=== PATIENT | male | born 1965 | race Caucasian/White ===

== ENCOUNTER 2016-04-18 10:26 | Emergency (ER) | payer BC ==
--- NOTE | 2016-04-18 12:09 | DIAGNOSTIC IMAGING REPORT ---
PROCEDURE: XR CHEST 1 VIEW INDICATION: CHEST PAIN TECHNIQUE: Portable AP view 11:00 a.m. COMPARISON: None available FINDINGS: Lungs are clear. Heart and mediastinum are normal. Thorax is normal. IMPRESSION: 1. Negative chest.
--- NOTE | 2016-04-18 14:15 | ED CLINICAL REPORT ---
Clinical Report - Physicians/Mid Levels [facility] [address] [place] [address] 04/18/2016 10:29 Patient: EVERARDO MATA Arrived- By private vehicle. Historian- patient. HISTORY OF PRESENT ILLNESS Chief Complaint: CHEST PAIN. It is described as tightness and burning and it is described as located in the left chest area and neck and radiating to the neck (Left). 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 It was abrupt in onset and has been constant but is not gone now. Onset during light activity; at work. At its maximum, severity described as moderate. When seen in the E.D., severity described as moderate. Modifying factors. Not worsened by anything. Not relieved by anything. No nausea, vomiting, difficulty breathing or diaphoresis. (reports having normal stress test and monitoring for abnormal heart beat "years ago." Has not seen a emergency man in the past. NO hemoptysis, leg swelling, trauma, or recent surgeries.). No additional chest pain. Similar symptoms previously: None. Recent medical care: Not recently seen/assessed. REVIEW OF SYSTEMS No fever, chills, cough, pedal edema or calf pain. No sore throat, abdominal pain or skin rash. All systems otherwise negative, except as recorded above. PAST HISTORY See nurses notes. Denies the following risk factors for DVT/PE - history of DVT and pulmonary embolism, recent surgery, recent RI and congestive heart failure. Denies the following risk factors for DVT/PE - cancer, clotting disorder, estrogens, obesity and immobility. Denies the following risk factors for DVT/PE - advanced in age and vena cava filter. SOCIAL HISTORY Never smoker. No alcohol use or drug use. Is a local resident. FAMILY HISTORY History of heart disease (mother with "heart attack" in late 50s). ADDITIONAL NOTES The nursing notes have been reviewed. PHYSICAL EXAM Vital Signs: 04/18/2016 10:27 BP: 146/91. HR: 74. RR: 12. O2 saturation: 97%. Temp: 97.9 F. Pain level now: 1/10. Blood pressure normal. Oxygen saturation normal. Appearance: Alert. Oriented X3. No acute distress. Eyes: Pupils equal, round and reactive to light. Eyes normal inspection. ENT: Ears normal. Nose normal. Pharynx normal. Neck: Normal inspection. Neck supple. No JVD, lymphadenopathy or thyromegaly. CVS: Normal heart rate and rhythm. Heart sounds normal. Pulses normal. No decreased pulses. Respiratory: No respiratory distress. Breath sounds normal. Chest nontender. No rales, rhonchi or wheezes. Abdomen: Soft and nontender. Bowel sounds normal. No mass. Skin: Skin warm and dry. Normal skin color. No rash. Normal skin turgor. Extremities: Extremities exhibit normal ROM. No clubbing present or lower extremity edema. No calf tenderness. No lower extremity edema. Neuro: Oriented X 3. LABS, X-RAYS, AND EKG EKG: No acute process. No acute ischemia. Normal EKG. Rate: 76. Normal P waves. Normal PRISCILA. Normal QRS complex. Normal axis. Normal ST and T waves, QT and QTc. The study has been interpreted contemporaneously. The study has been independently viewed by me. The EKG appears to be a good tracing. Chest X-ray: (PROCEDURE: XR CHEST 1 VIEW INDICATION: CHEST PAIN TECHNIQUE: Portable AP view 11:00 a.m. COMPARISON: None available FINDINGS: Lungs are clear. Heart and mediastinum are normal. Thorax is normal. IMPRESSION: 1. Negative chest.). Views: PA. The X-rays were independently viewed by me and interpreted by the radiologist. The X-rays were discussed with the radiologist (via pacs). Laboratory Tests: CBC w Diff: (TIM: 04/18/2016 10:40) ( MsgRcvd 04/18/2016 11:15) Final results Test Result Flag Units (Reference) WHITE BLOOD COUNT 6.6 K/uL (4.5-11.5) RED BLOOD COUNT 5.16 M/uL (4.50-5.90) HEMOGLOBIN 15.4 gm/dL (13.5-17.5) HEMATOCRIT 45.6 % (41.0-53.0) MEAN CELL VOLUME 88 fL (80-100) MEAN CORPUSCULAR HGB 30 pg (26-34) MEAN CORPUSCULAR HGB CONC 34 g/dL (31-37) RED CELL DISTRIBUTION WIDTH 13.1 % (11.6-14.8) PLATELET COUNT 265 K/uL (150-400) NEUTROPHIL % 56.0 % (50-75) LYMPH % 34.7 % (25-40) MONO % 6.8 % (3-14) EOSINOPHIL % 2.0 % (0-4) BASOPHIL % 0.5 % (0-2) [id number]: (TIM: 04/18/2016 10:40) ( [facility] 04/18/2016 11:19) Final results Test Result Flag Units (Reference) D-DIMER QUANTITATIVE 0.33 ug/mLFEU (0.27-0.52) The primary value of this quantitative assay relates toits negative predictive value (i.e. exclusion) of pulmonaryembolism/deep vein thrombosis/DIC.Elevated levels of d-dimer may also occur with:, age, cancer, inflammation, liver disease,post-op, infection, hematoma, coronary disease, peripheralarteriopathy, bleeding disorders and thrombolytic treatment.Results should be correlated with other clinical andradiological data.Testing Methodology: Latex Immunoassay Troponin-I: (TIM: 04/18/2016 12:55) ( [facility] 04/18/2016 13:27) Final results Test Result Flag Units (Reference) TROPONIN I <0.05 ng/mL (0.00-1.5) TROPONIN REFERENCE RANGE:<0.1 NEGATIVE0.1-1.5 INDETERMINANT>1.5 POSITIVE CMP: (TIM: 04/18/2016 10:40) ( [facility] 04/18/2016 11:33) Final results Test Result Flag Units (Reference) GLUCOSE 138 H mg/dL (70-110) BUN 20 H mg/dL (7-18) CREATININE 1.0 mg/dL (0.6-1.3) Estimated GFR >60 mL/min Estimated GFR- >60 mL/min Note: Persistent reduction over 3 months in eGFR<60 mL/min/1.73 m2 defines CKD. Patients with eGFR values>=60 mL/min/1.73 m2 may also have CKD if evidence ofpersistent proteinuria. Additional information may be foundat [email or web address].org. SODIUM 141 mmol/L (136-145) POTASSIUM 3.9 mmol/L (3.5-5.1) CHLORIDE 104 mmol/L (98-107) CARBON DIOXIDE 29 mmol/L (21-32) CALCIUM 8.4 L mg/dL (8.5-10.1) TOTAL PROTEIN 7.1 g/dL (6.4-8.2) ALBUMIN 3.6 g/dL (3.3-5.0) BILIRUBIN, TOTAL 0.8 mg/dL (0.0-1.0) ALKALINE PHOSPHATASE 59 U/L (46-116) AST (SGOT) 20 U/L (15-37) ALT (SGPT) 35 U/L (12-78) TROPONIN I <0.05 L ng/mL (0.00-1.5) TROPONIN REFERENCE RANGE:<0.1 NEGATIVE0.1-1.5 INDETERMINANT>1.5 POSITIVE . PROGRESS AND PROCEDURES Course of Care: the patient is a pleasant 50-year-old male with no pertinent past medical history presenting for evaluation of chest pain. At this time differential diagnosis includes pneumothorax, acute myocardial infarction, and pulmonary embolism. Patient will be reevaluated with d-dimer as well as chest x-ray, EKG, and laboratory studies. A delta troponin will be ordered because of the time of onset of patient's symptoms. The patient did mention having history of heartburn. Patient reports that it is in a slightly different area than previous episodes of heartburn. We'll provide patient with GI cocktail and reevaluate. Patient is agreeable to the treatment and plan. symptoms with mild improvement after GI cocktail provided here in the emergency department. First troponin is noted to be undetectable on laboratory studies. Electorally lites and complete blood count cell count not show any acute abnormalities EKG is also unremarkable. No infiltrates or consolidations noted on patient's chest x-ray. Because the patient's time course, delta troponin has been ordered. I discussed with patient the course and the results of his laboratory studies so far. Patient is not accompanied with family. The patient's mother and father at bedside. Explained to the patient and family at length the workup and capabilities here in the emergency department. Patient's mother is very concerned as she states she had a heart attack in her 50s. Mother also states that she had a heart attack recently. Had a long discussion in regards to workup here in the emergency department and possibilities for plan. Explained to family the different risks that are associated with patient's who comes to the emergency department with chest pain. The patient is otherwise a young healthy 50-year-old male with Risk factor of family history. Explained to them possibility of cardiology evaluation and possibilities of cardiology's decision once he is able to schedule an appointment with them Provided his laboratory studies are unremarkable today. The patient's workup was noted to be unremarkable. The patient's second troponin was also less than the dissectible amount area because of the troponin has been negative 2 as well as with a normal d-dimer. Do not feel patient has an acute myocardial infarction, thoracic aortic dissection, or pulmonary embolism. Pain is improved here in the emergency department. Do not the patient is admitted to the hospital or require further emergency department evaluation/workup. Patient is a stable and reliable outpatient candidate for follow-up with cardiology. I was able to contact the cardiology office. We had faxed over information for them to schedule an appointment with the patient. They had requested that we call back in approximately 2 hours for confirmation of the appointment. Discussed with patient workup, diagnosis, home care, follow-up, and return precautions. All questions answered. The patient expressed understanding of these instructions and was agreeable to them. We had called back approximately 2 hours later. Apparently nothing had happened. They state that they will speak with cardiology in regards to the patient's appointment and contact the patient when one has been scheduled. Unfortunately, the schedule has been full and they do not have any current openings at this time within 3 days. I have been able to contact the emergency man office on April 20, 2016. Patient hasn't scheduled an appointment for April 22, 2016 at 2:30 PM. Had left a message on the patient's phone in regards to the appointment. Of note, I am acquainted with the patient's brother. Informed verbal consent obtained for sharing medical information with the brother. I was able to contact the brother and up-to-date him on the appointment that is been scheduled for April 22. Encouraged the family or the patient and including the brother to contact me on my cell phone if they have any questions. Disposition: Discharged. Condition: good. CLINICAL IMPRESSION Chest pain characterized as "tightness" .12 lead EKG performed. (acute left-sided). 04/18/2016 10:27 BP: 146/91. HR: 74. RR: 12. O2 saturation: 97%. Temp: 97.9 F. Pain level now: 03/29. Hypertensive. Oxygen saturation normal. Essential hypertension. INSTRUCTIONS Warnings: GENERAL WARNINGS: Return or contact your physician immediately if your condition worsens or changes unexpectedly, if not improving as expected, or if other problems arise. SPECIFICALLY, return if you develop chest, neck, jaw, shoulder, arm, or back pain, difficulty breathing, a fluttering sensation in your chest, lightheadedness, fainting, excessive fatigue, or sudden sweating. Your Current Medications: CONTINUE TAKING THE FOLLOWING MEDICATIONS: None*. Prescription Medications: Pepcid 20 mg: take 1 orally every 12 hours as needed for indigestion, upset stomach or heartburn. Dispense thirty (30). No refills. Substitution is permissible. OTC Medications: Aspirin 81 mg (available over the counter): take 1 orally every 24 hours. Dispense thirty (30). No refills. Follow-up: Return to the emergency department as needed. Screening today revealed the patient's blood pressure to be in the hypertensive range. The patient should follow up with a primary care provider for blood pressure management. Understanding of the discharge instructions verbalized by patient and family. Follow-up with: [facility], , , [address], [facility], [id number] Follow up in three days. Reason for referral: recheck today's concerns. Summary of care provided to patient and family via paper. Follow-up with: Fuad Villegas MD, Cardiology, , [facility], [address] [facility], [id number] Follow up in three. Reason for referral: recheck today's concerns. please call to verify appointment. (Electronically signed by Curtis Ruggiero Dr. 04/20/2016 16:28)
--- NOTE | 2016-04-18 14:15 | ED NURSING NOTES ---
Clinical Report - Nurses [facility] [address] [place] [address] 04/18/2016 10:29 Patient: EVERARDO MATA TRIAGE Acuity: LEVEL 2. Chief Complaint: CHEST PAIN. Alert. No acute distress. SEPSIS SCREEN: Sepsis Screen. Negative (no infection suspected/documented). --10:32 Denia Prater R.N. 10:27 04/18/16. BP: 146/91. HR: 74. RR: 12. O2 saturation: 97%. Temp: 97.9 F. Pain level now: 03/29. --10:32 Denia Prater R.N. Weight: 88.4 kg stated. Height/Length: 75 inches Per Patient. BMI: 24.4. --10:30 Denia Prater R.N. Medications None. --10:28 Denia Prater R.N. Medication/allergy information source: the patient. --10:32 Denia Prater R.N. Allergies No Known Drug Allergy. --10:28 Denia Prater R.N. History Arrived by private vehicle. Historian: patient. Accompanied by (coworker). Primary physician (Marleny). This started just prior to arrival. Describes the quality as burning. Relates location as in the left chest area. ( Pt reports gradual onset of chest pain after eating lunch.). No nausea, vomiting, nausea or vomiting. SOCIAL HX: Never smoker. Occasional alcohol use. No drug use. FALL RISK ASSESSMENT: Fall risk assessment completed. No fall risk identified. NUTRITIONAL RISK ASSESSMENT: The nutritional risk assessment revealed no deficiencies. FUNCTIONAL ASSESSMENT: Functional assessment: no impairments noted. LEARNING NEEDS ASSESSMENT: The learning needs assessment revealed no barriers. SKIN INTEGRITY ASSESSMENT: Skin integrity risk assessment completed. No skin integrity risk identified. --10:32 Denia Prater R.N. Assessment GENERAL / NEURO / PSYCH: Alert. Oriented X 4. Appears in no acute distress. Patient appears calm and cooperative. RESPIRATORY: Respirations not labored. CVS: Cardiac rhythm: normal sinus rhythm. Capillary refill less than 2 seconds. GI / : Abdomen soft and nontender. SKIN: Mucous membranes are pink. Skin is warm and dry. --10:32 Denia Prater R.N. Interventions ID band on patient. To treatment room. --10:32 Denia Prater R.N. PHYSICAL ASSESSMENT 10:33 04/18/16. Ambulatory to room. GENERAL / NEURO / PSYCH: Alert. Oriented X 4. Appears in no acute distress. HEENT: Mucous membranes are pink. RESPIRATORY: Respirations not labored. Breath sounds within normal limits. CVS: Normal sinus rhythm noted. Heart sounds within normal limits. GI / : Abdomen soft. EXTREMITIES: No lower extremity edema. SKIN: Skin is warm and dry. Normal skin turgor. Skin is non-tender. --10:33 Denia Prater R.N. NURSING PROGRESS NOTES 10:33 04/18/16. ekg monitor, pulse oximeter and NIBP monitor placed on patient; monitor alarms on. Patient gowned. Two patient identifiers checked. Call light placed in reach. Side rails up. Bed placed in lowest position. Brakes of bed on. Patient ready for evaluation- chart flagged and ED physician notified. --10:33 Denia Prater R.N. EKG time: (1034). EKG was performed by a tech and shown to the ED physician. --10:33 Denia Prater R.N. 10:44 04/18/2016 Site #1 started via IV in the left antecubital space with an 20g angiocath, with aseptic technique and good blood return; one attempt. Blood drawn: rainbow set. Labeled in the presence of the patient and sent to the lab. Saline lock flushed with 10 mL saline. --10:44 Denia Prater R.N. 10:58 04/18/2016 GI COCKTAIL WHITE (Simethicone) PO 30 mL given. Allergies verified and confirmed 5 rights. --10:58 Denia Prater R.N. Checked patient name and birthdate: patient confirmed. Blood samples drawn from the right antecubital space with syringe and 23g butterfly by tech per protocol ; labeled in presence of the patient: green top; cardiac enzymes (2nd set). --12:57 Jonathan Rankin 13:04 04/18/16. BP: 141/89. HR: 76. RR: 18. O2 saturation: 99%. --13:04 Denia Prater R.N. Care transferred and report received. --13:14 Rosie Mccall 13:14 04/18/16. BP: 141/91. HR: 78. RR: 18. O2 saturation: 98% on room air. Pain level now: 03/29. --13:14 Rosie Mccall. DISPOSITION / DISCHARGE 14:34 04/18/16. Condition at departure: improved. The goals identified in the patient's plan of care were met. FALL RISK ASSESSMENT: Fall risk assessment completed. No fall risk identified. --14:34 Rosie Mccall 14:34 04/18/16. BP: 137/86. HR: 80. RR: 16. O2 saturation: 97% on room air. Temp: 99 F. Pain level now: 03/29. --14:34 Rosie Mccall 14:55 04/18/16. Departure time: 14:55 Apr 18 2016. No learning barriers present. Discharge instructions provided and reviewed with the patient. Reviewed warnings (Patient verbalized awareness of warning s/sx listed in dc paperwork.). Reviewed medication(s) side effects, precautions, dosing and course information. Prescription(s) given to the patient (Aspirin, Pepcid). Treatments reviewed. Reviewed referrals for followup ([facility]-Patient insurance information sent to clinic. Clinic to call back around 4. Patient informed that ER staff will contact patient.). Patient verbalized understanding. Written instructions provided in Slovak. The patient was discharged by the physician. He was discharged home and accompanied by family. He left the Emergency Department ambulatory and via private vehicle. Family member driving. --14:55 Rosie Mccall. Locked/Released at 04/20/2016 7:55 by Christiane Omalley R.N.
--- NOTE | 2016-04-18 14:15 | ED ORDER SUMMARY ---
..... Patient: EVERARDO MATA OrderSheet [facility] VisitID: [id number] [place] [address] 50y, M Registration Date/Time: 04/18/2016 ORDER SHEET Weight: 88.4 kg (stated) Allergies: No Known Drug Allergy GENERAL ORDERS: Chest 1V Urgent (10:48 04/18/2016 Jaye Lea) (Ack 10:54 LMuller) (12:49 MWinterer R.N.) Water Control Supervisor (Continuous) (CP) (10:48 04/18/2016 Jaye Lea) (10:58 MWinterer R.N.) CBC w Diff Urgent (10:49 04/18/2016 Jaye Lea) (Ack 10:54 LMuller) (10:58 MWinterer R.N.) CMP Urgent (10:49 04/18/2016 Jaye Lea) (Ack 10:54 LMuller) (10:58 MWinterer R.N.) D-Dimer Urgent (10:49 04/18/2016 Jaye Lea) (Ack 10:54 LMuller) (10:58 MWinterer R.N.) Troponin-I Urgent (10:49 04/18/2016 Jaye Lea) (Ack 10:54 LMuller) (10:58 MWinterer R.N.) Pulse oximeter (10:49 04/18/2016 Jaye Lea) (10:58 MWinterer R.N.) Oxygen (2 L/min) (NC) (10:49 04/18/2016 Jaye Lea) (10:58 MWinterer R.N.) Troponin-I (repeat 2 hours after first troponin drawn) Urgent (12:49 04/18/2016 Jaye Lea) (12:57 LTapper) MEDICATION ORDERS: GI Cocktail WHITE PO 30 mL (NOW) (10:49 04/18/2016 Jaye Lea) (Ack 10:58 MWinterer R.N.) (10:58 MWinterer R.N.) Aspirin PO 325 mg (Do not crush or chew, NOW) (14:15 04/18/2016 Jaye Lea) (Cancelled: patient reports already taking one today14:26 Jaye Lea) IV FLUIDS: IV Saline Lock (10:49 04/18/2016 Jaye Lea) (10:58 Quirino Bermeo) ORDER SHEET NOTES: [Electronically signed by Christiane Omalley R.N. (07:55 04/20/2016)] [Electronically signed by Curtis Ruggiero Dr. (16:28 04/20/2016)] [Electronically locked/signed by Christiane Omalley R.N. (07:55 04/20/2016)]
--- NOTE | 2016-04-18 14:15 | ED ORDER SUMMARY ---
..... Patient: EVERARDO MATA OrderSheet [facility] VisitID: [id number] [place] [address] 50y, M Registration Date/Time: 04/18/2016 ORDER SHEET Weight: 88.4 kg (stated) Allergies: No Known Drug Allergy GENERAL ORDERS: Chest 1V Urgent (10:48 04/18/2016 Jaye Lea) (Ack 10:54 LMuller) (12:49 MWinterer R.N.) Power Driven Brush Maker (Continuous) (CP) (10:48 04/18/2016 aJye Lea) (10:58 MWinterer R.N.) CBC w Diff Urgent (10:49 04/18/2016 Jaye Lea) (Ack 10:54 LMuller) (10:58 MWinterer R.N.) CMP Urgent (10:49 04/18/2016 Jaye Lea) (Ack 10:54 LMuller) (10:58 MWinterer R.N.) D-Dimer Urgent (10:49 04/18/2016 Jaye Lea) (Ack 10:54 LMuller) (10:58 MWinterer R.N.) Troponin-I Urgent (10:49 04/18/2016 Jaye Lea) (Ack 10:54 LMuller) (10:58 MWinterer R.N.) Pulse oximeter (10:49 04/18/2016 Jaye Lea) (10:58 MWinterer R.N.) Oxygen (2 L/min) (NC) (10:49 04/18/2016 Jaye Lea) (10:58 MWinterer R.N.) Troponin-I (repeat 2 hours after first troponin drawn) Urgent (12:49 04/18/2016 Jaye Lea) (12:57 LTapper) MEDICATION ORDERS: GI Cocktail WHITE PO 30 mL (NOW) (10:49 04/18/2016 Jaye Lea) (Ack 10:58 MWinterer R.N.) (10:58 MWinterer R.N.) Aspirin PO 325 mg (Do not crush or chew, NOW) (14:15 04/18/2016 Jaye Lea) (Cancelled: patient reports already taking one today14:26 Jaye Lea) IV FLUIDS: IV Saline Lock (10:49 04/18/2016 Jaye Lea) (10:58 Quirino Bermeo) ORDER SHEET NOTES: [Electronically signed by Christiane Omalley R.N. (07:55 04/20/2016)] [Electronically signed by Curtis Ruggiero Dr. (16:28 04/20/2016)] [Electronically locked/signed by Christiane Omalley R.N. (07:55 04/20/2016)]
--- NOTE | 2016-04-18 14:15 | ED NURSING NOTES ---
Clinical Report - [facility] [address] [place] [address] 04/18/2016 10:29 Patient: EVERARDO MATA TRIAGE Acuity: LEVEL 2. Chief Complaint: CHEST PAIN. Alert. No acute distress. SEPSIS SCREEN: Sepsis Screen. Negative (no infection suspected/documented). --10:32 Denia Prater R.N. 10:27 04/18/16. BP: 146/91. HR: 74. RR: 12. O2 saturation: 97%. Temp: 97.9 F. Pain level now: 03/29. --10:32 Denia Prater R.N. Weight: 88.4 kg stated. Height/Length: 75 inches Per Patient. BMI: 24.4. --10:30 Denia Prater R.N. Medications None. --10:28 Denia Prater R.N. Medication/allergy information source: the patient. --10:32 Denia Prater R.N. Allergies No Known Drug Allergy. --10:28 Denia Prater R.N. History Arrived by private vehicle. Historian: patient. Accompanied by (coworker). Primary physician (Marleny). This started just prior to arrival. Describes the quality as burning. Relates location as in the left chest area. ( Pt reports gradual onset of chest pain after eating lunch.). No nausea, vomiting, nausea or vomiting. SOCIAL HX: Never smoker. Occasional alcohol use. No drug use. FALL RISK ASSESSMENT: Fall risk assessment completed. No fall risk identified. NUTRITIONAL RISK ASSESSMENT: The nutritional risk assessment revealed no deficiencies. FUNCTIONAL ASSESSMENT: Functional assessment: no impairments noted. LEARNING NEEDS ASSESSMENT: The learning needs assessment revealed no barriers. SKIN INTEGRITY ASSESSMENT: Skin integrity risk assessment completed. No skin integrity risk identified. --10:32 Denia Prater R.N. Assessment GENERAL / NEURO / PSYCH: Alert. Oriented X 4. Appears in no acute distress. Patient appears calm and cooperative. RESPIRATORY: Respirations not labored. CVS: Cardiac rhythm: normal sinus rhythm. Capillary refill less than 2 seconds. GI / : Abdomen soft and nontender. SKIN: Mucous membranes are pink. Skin is warm and dry. --10:32 Denia Prater R.N. Interventions ID band on patient. To treatment room. --10:32 Denia Prater R.N. PHYSICAL ASSESSMENT 10:33 04/18/16. Ambulatory to room. GENERAL / NEURO / PSYCH: Alert. Oriented X 4. Appears in no acute distress. HEENT: Mucous membranes are pink. RESPIRATORY: Respirations not labored. Breath sounds within normal limits. CVS: Normal sinus rhythm noted. Heart sounds within normal limits. GI / : Abdomen soft. EXTREMITIES: No lower extremity edema. SKIN: Skin is warm and dry. Normal skin turgor. Skin is non-tender. --10:33 Denia Prater R.N. NURSING PROGRESS NOTES 10:33 04/18/16. electronic device monitor, pulse oximeter and NIBP monitor placed on patient; monitor alarms on. Patient gowned. Two patient identifiers checked. Call light placed in reach. Side rails up. Bed placed in lowest position. Brakes of bed on. Patient ready for evaluation- chart flagged and ED physician notified. --10:33 Denia Prater R.N. EKG time: (1034). EKG was performed by a tech and shown to the ED physician. --10:33 Denia Prater R.N. 10:44 04/18/2016 Site #1 started via IV in the left antecubital space with an 20g angiocath, with aseptic technique and good blood return; one attempt. Blood drawn: rainbow set. Labeled in the presence of the patient and sent to the lab. Saline lock flushed with 10 mL saline. --10:44 Denia Prater R.N. 10:58 04/18/2016 GI COCKTAIL WHITE (Simethicone) PO 30 mL given. Allergies verified and confirmed 5 rights. --10:58 Denia Prater R.N. Checked patient name and birthdate: patient confirmed. Blood samples drawn from the right antecubital space with syringe and 23g butterfly by tech per protocol ; labeled in presence of the patient: green top; cardiac enzymes (2nd set). --12:57 Jonathan Rankin 13:04 04/18/16. BP: 141/89. HR: 76. RR: 18. O2 saturation: 99%. --13:04 Denia Prater R.N. Care transferred and report received. --13:14 Rosie Mccall 13:14 04/18/16. BP: 141/91. HR: 78. RR: 18. O2 saturation: 98% on room air. Pain level now: 03/29. --13:14 Rosie Mccall. DISPOSITION / DISCHARGE 14:34 04/18/16. Condition at departure: improved. The goals identified in the patient's plan of care were met. FALL RISK ASSESSMENT: Fall risk assessment completed. No fall risk identified. --14:34 Rosie Mccall 14:34 04/18/16. BP: 137/86. HR: 80. RR: 16. O2 saturation: 97% on room air. Temp: 99 F. Pain level now: 03/29. --14:34 Rosie Mccall 14:55 04/18/16. Departure time: 14:55 Apr 18 2016. No learning barriers present. Discharge instructions provided and reviewed with the patient. Reviewed warnings (Patient verbalized awareness of warning s/sx listed in dc paperwork.). Reviewed medication(s) side effects, precautions, dosing and course information. Prescription(s) given to the patient (Aspirin, Pepcid). Treatments reviewed. Reviewed referrals for followup ([facility] Cardiology-Patient insurance information sent to clinic. Clinic to call back around 4. Patient informed that ER staff will contact patient.). Patient verbalized understanding. Written instructions provided in Hebrew. The patient was discharged by the physician. He was discharged home and accompanied by family. He left the Emergency Department ambulatory and via private vehicle. Family member driving. --14:55 Rosie Mccall. Locked/Released at 04/20/2016 7:55 by Christiane Omalley R.N.
--- NOTE | 2016-04-18 14:15 | ED CLINICAL REPORT ---
Clinical Report - Physicians/Mid Levels [facility] [address] [place] [address] 04/18/2016 10:29 Patient: EVERARDO MATA Arrived- By private vehicle. Historian- patient. HISTORY OF PRESENT ILLNESS Chief Complaint: CHEST PAIN. It is described as tightness and burning and it is described as located in the left chest area and neck and radiating to the neck (Left). 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 It was abrupt in onset and has been constant but is not gone now. Onset during light activity; at work. At its maximum, severity described as moderate. When seen in the E.D., severity described as moderate. Modifying factors. Not worsened by anything. Not relieved by anything. No nausea, vomiting, difficulty breathing or diaphoresis. (reports having normal stress test and monitoring for abnormal heart beat "years ago." Has not seen a solar energy engineer in the past. NO hemoptysis, leg swelling, trauma, or recent surgeries.). No additional chest pain. Similar symptoms previously: None. Recent medical care: Not recently seen/assessed. REVIEW OF SYSTEMS No fever, chills, cough, pedal edema or calf pain. No sore throat, abdominal pain or skin rash. All systems otherwise negative, except as recorded above. PAST HISTORY See nurses notes. Denies the following risk factors for DVT/PE - history of DVT and pulmonary embolism, recent surgery, recent DC and congestive heart failure. Denies the following risk factors for DVT/PE - cancer, clotting disorder, estrogens, obesity and immobility. Denies the following risk factors for DVT/PE - advanced in age and vena cava filter. SOCIAL HISTORY Never smoker. No alcohol use or drug use. Is a local resident. FAMILY HISTORY History of heart disease (mother with "heart attack" in late 50s). ADDITIONAL NOTES The nursing notes have been reviewed. PHYSICAL EXAM Vital Signs: 04/18/2016 10:27 BP: 146/91. HR: 74. RR: 12. O2 saturation: 97%. Temp: 97.9 F. Pain level now: 1/10. Blood pressure normal. Oxygen saturation normal. Appearance: Alert. Oriented X3. No acute distress. Eyes: Pupils equal, round and reactive to light. Eyes normal inspection. ENT: Ears normal. Nose normal. Pharynx normal. Neck: Normal inspection. Neck supple. No JVD, lymphadenopathy or thyromegaly. CVS: Normal heart rate and rhythm. Heart sounds normal. Pulses normal. No decreased pulses. Respiratory: No respiratory distress. Breath sounds normal. Chest nontender. No rales, rhonchi or wheezes. Abdomen: Soft and nontender. Bowel sounds normal. No mass. Skin: Skin warm and dry. Normal skin color. No rash. Normal skin turgor. Extremities: Extremities exhibit normal ROM. No clubbing present or lower extremity edema. No calf tenderness. No lower extremity edema. Neuro: Oriented X 3. LABS, X-RAYS, AND EKG EKG: No acute process. No acute ischemia. Normal EKG. Rate: 76. Normal P waves. Normal PRISCILA. Normal QRS complex. Normal axis. Normal ST and T waves, QT and QTc. The study has been interpreted contemporaneously. The study has been independently viewed by me. The EKG appears to be a good tracing. Chest X-ray: (PROCEDURE: XR CHEST 1 VIEW INDICATION: CHEST PAIN TECHNIQUE: Portable AP view 11:00 a.m. COMPARISON: None available FINDINGS: Lungs are clear. Heart and mediastinum are normal. Thorax is normal. IMPRESSION: 1. Negative chest.). Views: PA. The X-rays were independently viewed by me and interpreted by the radiologist. The X-rays were discussed with the radiologist (via pacs). Laboratory Tests: CBC w Diff: (TIM: 04/18/2016 10:40) ( MsgRcvd 04/18/2016 11:15) Final results Test Result Flag Units (Reference) WHITE BLOOD COUNT 6.6 K/uL (4.5-11.5) RED BLOOD COUNT 5.16 M/uL (4.50-5.90) HEMOGLOBIN 15.4 gm/dL (13.5-17.5) HEMATOCRIT 45.6 % (41.0-53.0) MEAN CELL VOLUME 88 fL (80-100) MEAN CORPUSCULAR HGB 30 pg (26-34) MEAN CORPUSCULAR HGB CONC 34 g/dL (31-37) RED CELL DISTRIBUTION WIDTH 13.1 % (11.6-14.8) PLATELET COUNT 265 K/uL (150-400) NEUTROPHIL % 56.0 % (50-75) LYMPH % 34.7 % (25-40) MONO % 6.8 % (3-14) EOSINOPHIL % 2.0 % (0-4) BASOPHIL % 0.5 % (0-2) [id number]: (TIM: 04/18/2016 10:40) ( [facility] 04/18/2016 11:19) Final results Test Result Flag Units (Reference) D-DIMER QUANTITATIVE 0.33 ug/mLFEU (0.27-0.52) The primary value of this quantitative assay relates toits negative predictive value (i.e. exclusion) of pulmonaryembolism/deep vein thrombosis/DIC.Elevated levels of d-dimer may also occur with:, age, cancer, inflammation, liver disease,post-op, infection, hematoma, coronary disease, peripheralarteriopathy, bleeding disorders and thrombolytic treatment.Results should be correlated with other clinical andradiological data.Testing Methodology: Latex Immunoassay Troponin-I: (TIM: 04/18/2016 12:55) ( [facility] 04/18/2016 13:27) Final results Test Result Flag Units (Reference) TROPONIN I <0.05 ng/mL (0.00-1.5) TROPONIN REFERENCE RANGE:<0.1 NEGATIVE0.1-1.5 INDETERMINANT>1.5 POSITIVE CMP: (TIM: 04/18/2016 10:40) ( [facility] 04/18/2016 11:33) Final results Test Result Flag Units (Reference) GLUCOSE 138 H mg/dL (70-110) BUN 20 H mg/dL (7-18) CREATININE 1.0 mg/dL (0.6-1.3) Estimated GFR >60 mL/min Estimated GFR- >60 mL/min Note: Persistent reduction over 3 months in eGFR<60 mL/min/1.73 m2 defines CKD. Patients with eGFR values>=60 mL/min/1.73 m2 may also have CKD if evidence ofpersistent proteinuria. Additional information may be foundat [email or web address].org. SODIUM 141 mmol/L (136-145) POTASSIUM 3.9 mmol/L (3.5-5.1) CHLORIDE 104 mmol/L (98-107) CARBON DIOXIDE 29 mmol/L (21-32) CALCIUM 8.4 L mg/dL (8.5-10.1) TOTAL PROTEIN 7.1 g/dL (6.4-8.2) ALBUMIN 3.6 g/dL (3.3-5.0) BILIRUBIN, TOTAL 0.8 mg/dL (0.0-1.0) ALKALINE PHOSPHATASE 59 U/L (46-116) AST (SGOT) 20 U/L (15-37) ALT (SGPT) 35 U/L (12-78) TROPONIN I <0.05 L ng/mL (0.00-1.5) TROPONIN REFERENCE RANGE:<0.1 NEGATIVE0.1-1.5 INDETERMINANT>1.5 POSITIVE . PROGRESS AND PROCEDURES Course of Care: the patient is a pleasant 50-year-old male with no pertinent past medical history presenting for evaluation of chest pain. At this time differential diagnosis includes pneumothorax, acute myocardial infarction, and pulmonary embolism. Patient will be reevaluated with d-dimer as well as chest x-ray, EKG, and laboratory studies. A delta troponin will be ordered because of the time of onset of patient's symptoms. The patient did mention having history of heartburn. Patient reports that it is in a slightly different area than previous episodes of heartburn. We'll provide patient with GI cocktail and reevaluate. Patient is agreeable to the treatment and plan. symptoms with mild improvement after GI cocktail provided here in the emergency department. First troponin is noted to be undetectable on laboratory studies. Electorally lites and complete blood count cell count not show any acute abnormalities EKG is also unremarkable. No infiltrates or consolidations noted on patient's chest x-ray. Because the patient's time course, delta troponin has been ordered. I discussed with patient the course and the results of his laboratory studies so far. Patient is not accompanied with family. The patient's mother and father at bedside. Explained to the patient and family at length the workup and capabilities here in the emergency department. Patient's mother is very concerned as she states she had a heart attack in her 50s. Mother also states that she had a heart attack recently. Had a long discussion in regards to workup here in the emergency department and possibilities for plan. Explained to family the different risks that are associated with patient's who comes to the emergency department with chest pain. The patient is otherwise a young healthy 50-year-old male with Risk factor of family history. Explained to them possibility of cardiology evaluation and possibilities of cardiology's decision once he is able to schedule an appointment with them Provided his laboratory studies are unremarkable today. The patient's workup was noted to be unremarkable. The patient's second troponin was also less than the dissectible amount area because of the troponin has been negative 2 as well as with a normal d-dimer. Do not feel patient has an acute myocardial infarction, thoracic aortic dissection, or pulmonary embolism. Pain is improved here in the emergency department. Do not the patient is admitted to the hospital or require further emergency department evaluation/workup. Patient is a stable and reliable outpatient candidate for follow-up with cardiology. I was able to contact the cardiology office. We had faxed over information for them to schedule an appointment with the patient. They had requested that we call back in approximately 2 hours for confirmation of the appointment. Discussed with patient workup, diagnosis, home care, follow-up, and return precautions. All questions answered. The patient expressed understanding of these instructions and was agreeable to them. We had called back approximately 2 hours later. Apparently nothing had happened. They state that they will speak with cardiology in regards to the patient's appointment and contact the patient when one has been scheduled. Unfortunately, the schedule has been full and they do not have any current openings at this time within 3 days. I have been able to contact the solar energy engineer office on April 20, 2016. Patient hasn't scheduled an appointment for April 22, 2016 at 2:30 PM. Had left a message on the patient's phone in regards to the appointment. Of note, I am acquainted with the patient's brother. Informed verbal consent obtained for sharing medical information with the brother. I was able to contact the brother and up-to-date him on the appointment that is been scheduled for April 22. Encouraged the family or the patient and including the brother to contact me on my cell phone if they have any questions. Disposition: Discharged. Condition: good. CLINICAL IMPRESSION Chest pain characterized as "tightness" .12 lead EKG performed. (acute left-sided). 04/18/2016 10:27 BP: 146/91. HR: 74. RR: 12. O2 saturation: 97%. Temp: 97.9 F. Pain level now: 03/29. Hypertensive. Oxygen saturation normal. Essential hypertension. INSTRUCTIONS Warnings: GENERAL WARNINGS: Return or contact your physician immediately if your condition worsens or changes unexpectedly, if not improving as expected, or if other problems arise. SPECIFICALLY, return if you develop chest, neck, jaw, shoulder, arm, or back pain, difficulty breathing, a fluttering sensation in your chest, lightheadedness, fainting, excessive fatigue, or sudden sweating. Your Current Medications: CONTINUE TAKING THE FOLLOWING MEDICATIONS: None*. Prescription Medications: Pepcid 20 mg: take 1 orally every 12 hours as needed for indigestion, upset stomach or heartburn. Dispense thirty (30). No refills. Substitution is permissible. OTC Medications: Aspirin 81 mg (available over the counter): take 1 orally every 24 hours. Dispense thirty (30). No refills. Follow-up: Return to the emergency department as needed. Screening today revealed the patient's blood pressure to be in the hypertensive range. The patient should follow up with a primary care provider for blood pressure management. Understanding of the discharge instructions verbalized by patient and family. Follow-up with: [facility], , , [address], [facility], [id number] Follow up in three days. Reason for referral: recheck today's concerns. Summary of care provided to patient and family via paper. Follow-up with: Fuad Villegas MD, Cardiology, , [facility], [address] [facility], [id number] Follow up in three. Reason for referral: recheck today's concerns. please call to verify appointment. (Electronically signed by Curtis Ruggiero Dr. 04/20/2016 16:28)
--- NOTE | 2016-04-20 16:28 | ED DISCHARGE INSTRUCTIONS ---
Patient: EVERARDO MATA General Instructions [facility] VisitID: [id number] [address] [place] [address] 50y, M Registration Date/Time: 04/18/2016 Chest pain characterized as "tightness" .12 lead EKG performed. (acute left-sided). 04/18/2016 10:27 BP: 146/91. HR: 74. RR: 12. O2 saturation: 97%. Temp: 97.9 F. Pain level now: 03/29. Hypertensive. Oxygen saturation normal. Essential hypertension. INSTRUCTIONS Warnings: GENERAL WARNINGS: Return or contact your physician immediately if your condition worsens or changes unexpectedly, if not improving as expected, or if other problems arise. SPECIFICALLY, return if you develop chest, neck, jaw, shoulder, arm, or back pain, difficulty breathing, a fluttering sensation in your chest, lightheadedness, fainting, excessive fatigue, or sudden sweating. Your Current Medications: CONTINUE TAKING THE FOLLOWING MEDICATIONS: None*. Prescription Medications: Pepcid 20 mg: take 1 orally every 12 hours as needed for indigestion, upset stomach or heartburn. Dispense thirty (30). No refills. Substitution is permissible. OTC Medications: Aspirin 81 mg (available over the counter): take 1 orally every 24 hours. Dispense thirty (30). No refills. Follow-up: Return to the emergency department as needed. Screening today revealed the patient's blood pressure to be in the hypertensive range. The patient should follow up with a primary care provider for blood pressure management. Understanding of the discharge instructions verbalized by patient and family. Follow-up with: [facility], , , [address], , [place], [id number] Follow up in three days. Reason for referral: recheck today's concerns. Summary of care provided to patient and family via paper. Follow-up with: Fuad Villegas MD, Cardiology, , [facility], [address], [facility], [id number] Follow up in three. Reason for referral: recheck today's concerns. please call to verify appointment. ADDITIONAL INFORMATION Chest Pain, Uncertain Cause (Child) There are many causes of chest pain in children, and most are not serious. Sometimes chest pain is caused by stress. The child may be anxious about a separation or family issues, such as a family . Children may also experience chest pain from stomach acid or excessive coughing. Other children may have a temporary pinched nerve. In many cases, the cause of the chest pain is never known. Home Care: Medications: The doctor may prescribe medications for pain or related symptoms, such as a cough. Follow the doctors instructions for giving these medications to your child. Do not give your child any medications that the doctor has not approved. General Care: Allow your child to continue normal activities, as advised by the doctor and as tolerated. Learn to detect your dipika signs of pain. Try to find comfort measures that soothe your child. Position your child so that he or she is as comfortable as possible when experiencing chest pain. Adjust positioning as needed. Apply a covered heating pad (set on warm, not hot) or a warm cloth to the affected area for 20 minutes, 4 times a day. Ask the doctor about exercises to stretch the chest musclesthat may help ease pain. Talk to the doctor about the causes of your dipika pain. The doctor may suggest other methods to ease it. Follow Up as advised by the doctor or our staff. Get Prompt Medical Attention if any of the following occur: Fever greater than 100.4F (38C) Continuing symptoms, without relief from medication or other treatment Difficulty breathing, shortness of breath, fast breathing Child acting very ill or too weak to stand High Blood Pressure -- To Be Confirmed [No Tx] Your blood pressure was higher today than normal. Sometimes anxiety or pain can cause a temporary rise in blood pressure that later returns to normal. If your blood pressure is high on one measurement, this does not mean that you have hypertension (a chronic illness). However, you must have your blood pressure measured again within the next few days to find out if its still high. A normal blood pressure is 120/80 or less. The first (top) number is the "systolic" pressure. The second (bottom) number is the "diastolic" pressure. Hypertension exists when either the top number is 140 or higher, OR the bottom number is 90 or higher on repeated measurements. Blood pressure in the range of 120-140 (systolic) or 80-89 (diastolic) is considered "pre-hypertension". This means your are at risk for getting hypertension. You should have regular blood pressure checks to be sure your blood pressure is not rising. Home Care: Measure your blood pressure on 3 different days and write down the results. This can be done at your doctor's office or this facility. Some pharmacies and grocery stores offer automated blood pressure machines for your use. Follow Up: If your blood pressure is "high" (over 120/80) on 2 out of 3 days, you will need to follow up with your doctor for further evaluation and treatment. DO NOT PUT THIS OFF! Untreated high blood pressure increases the risk for heart attack, also known as acute myocardial infarction, or AMI, and stroke. It is a treatable condition. Get Prompt Medical Attention if any of the following occur: Chest pain or shortness of breath Severe headache Throbbing or rushing sound in the ears Nosebleed Sudden severe abdominal pain Extreme drowsiness, confusion or fainting Dizziness or vertigo (dizziness with spinning sensation) Weakness of an arm or leg or one side of the face Difficulty with speech or vision Famotidine Oral tablet What is this medicine? FAMOTIDINE (fa ANGEL ti isacc) is a type of antihistamine that blocks the release of stomach acid. It is used to treat stomach or intestinal ulcers. It can also relieve heartburn from acid reflux. How should I use this medicine? Take this medicine by mouth with a glass of water. Follow the directions on the prescription label. If you only take this medicine once a day, take it at bedtime. Take your doses at regular intervals. Do not take your medicine more often than directed. Talk to your checker stocker regarding the use of this medicine in children. Special care may be needed. What side effects may I notice from receiving this medicine? Side effects that you should report to your doctor or health child care center administrator as soon as possible: agitation, nervousness confusion hallucinations skin rash, itching Side effects that usually do not require medical attention (report to your doctor or health child care center administrator if they continue or are bothersome): constipation diarrhea dizziness headache What may interact with this medicine? delavirdine itraconazole ketoconazole What if I miss a dose? If you miss a dose, take it as soon as you can. If it is almost time for your next dose, take only that dose. Do not take double or extra doses. Where should I keep my medicine? Keep out of the reach of children. Store at room temperature between 15 and 30 degrees C (59 and 86 degrees F). Do not freeze. Throw away any unused medicine after the expiration date. What should I tell my health care provider before I take this medicine? They need to know if you have any of these conditions: kidney or liver disease trouble swallowing an unusual or allergic reaction to famotidine, other medicines, foods, dyes, or preservatives or trying to get breast-feeding What should I watch for while using this medicine? Tell your doctor or health child care center administrator if your condition does not start to get better or if it gets worse. Finish the full course of tablets prescribed, even if you feel better. Do not take with aspirin, ibuprofen or other antiinflammatory medicines. These can make your condition worse. Do not smoke cigarettes or drink alcohol. These cause irritation in your stomach and can increase the time it will take for ulcers to heal. If you get black, tarry stools or vomit up what looks like coffee grounds, call your doctor or health child care center administrator at once. You may have a bleeding ulcer. Aspirin Oral tablet What is this medicine? ASPIRIN ( pir in) is a pain reliever. It is used to treat mild pain and fever. This medicine is also used as directed by a doctor to prevent and to treat heart attacks, to prevent strokes, and to treat arthritis or inflammation. How should I use this medicine? Take this medicine by mouth with a glass of water. Follow the directions on the package or prescription label. You can take this medicine with or without food. If it upsets your stomach, take it with food. Do not take your medicine more often than directed. Talk to your checker stocker regarding the use of this medicine in children. While this drug may be prescribed for children as young as 12 years of age for selected conditions, precautions do apply. Children and teenagers should not use this medicine to treat chicken pox or flu symptoms unless directed by a doctor. Patients over 65 years old may have a stronger reaction and need a smaller dose. What side effects may I notice from receiving this medicine? Side effects that you should report to your doctor or health child care center administrator as soon as possible: allergic reactions like skin rash, itching or hives, swelling of the face, lips, or tongue breathing problems changes in hearing, ringing in the ears confusion general ill feeling or flu-like symptoms pain on swallowing redness, blistering, peeling or loosening of the skin, including inside the mouth or nose signs and symptoms of bleeding such as bloody or black, tarry stools; red or dark-brown urine; spitting up blood or brown material that looks like coffee grounds; red spots on the skin; unusual bruising or bleeding from the eye, gums, or nose trouble passing urine or change in the amount of urine unusually weak or tired yellowing of the eyes or skin Side effects that usually do not require medical attention (report to your doctor or health child care center administrator if they continue or are bothersome): diarrhea or constipation nausea, vomiting stomach gas, heartburn What may interact with this medicine? Do not take this medicine with any of the following medications: cidofovir ketorolac probenecid This medicine may also interact with the following medications: alcohol alendronate bismuth subsalicylate flavocoxid herbal supplements like feverfew, garlic, domingo, ginkgo biloba, horse chestnut medicines for diabetes or glaucoma like acetazolamide, methazolamide medicines for gout medicines that treat or prevent blood clots like enoxaparin, heparin, ticlopidine, warfarin other aspirin and aspirin-like medicines NSAIDs, medicines for pain and inflammation, like ibuprofen or naproxen pemetrexed sulfinpyrazone varicella live vaccine What if I miss a dose? If you are taking this medicine on a regular schedule and miss a dose, take it as soon as you can. If it is almost time for your next dose, take only that dose. Do not take double or extra doses. Where should I keep my medicine? Keep out of the reach of children. Store at room temperature between 15 and 30 degrees C (59 and 86 degrees F). Protect from heat and moisture. Do not use this medicine if it has a strong vinegar smell. Throw away any unused medicine after the expiration date. What should I tell my health care provider before I take this medicine? They need to know if you have any of these conditions: anemia asthma bleeding problems child with chickenpox, the flu, or other viral infection diabetes gout if you frequently drink alcohol containing drinks kidney disease liver disease low level of vitamin K lupus smoke tobacco stomach ulcers or other problems an unusual or allergic reaction to aspirin, tartrazine dye, other medicines, dyes, or preservatives or trying to get breast-feeding What should I watch for while using this medicine? If you are treating yourself for pain, tell your doctor or health child care center administrator if the pain lasts more than 10 days, if it gets worse, or if there is a new or different kind of pain. Tell your doctor if you see redness or swelling. Also, check with your doctor if you have a fever that lasts for more than 3 days. Only take this medicine to prevent heart attacks or blood clotting if prescribed by your doctor or health child care center administrator. Do not take aspirin or aspirin-like medicines with this medicine. Too much aspirin can be dangerous. Always read the labels carefully. This medicine can irritate your stomach or cause bleeding problems. Do not smoke cigarettes or drink alcohol while taking this medicine. Do not lie down for 30 minutes after taking this medicine to prevent irritation to your throat. If you are scheduled for any medical or dental procedure, tell your healthcare provider that you are taking this medicine. You may need to stop taking this medicine before the procedure. You have been given the following additional information: Chest Pain, Uncertain Cause (Child) Hypertension, To Be Confirmed Famotidine Oral tablet Aspirin Oral tablet (Electronically signed by Curtis Ruggiero Dr. 04/20/2016 16:28)
--- NOTE | 2016-04-20 16:28 | ED MAR SUMMARY ---
..... Medication Administration Record [address] [place] [address] Patient: EVERARDO MATA Visit ID: [id number] 50y, M Weight: 88.4 kg Height/Length: 75 in BMI: 24.4 ALLERGIES: No Known Drug Allergy Given 10:58 04/18/2016 Denia Prater R.N. Medication Administered: GI COCKTAIL WHITE [PO] (SIMETHICONE), Dose: 30 mL PO. Medication Ordered: GI Cocktail WHITE PO 30 mL (NOW).
--- NOTE | 2016-04-20 16:28 | ED MED RECONCILIATION SUMMARY ---
Patient: EVERARDO MATA Medication Reconciliation Report [facility] VisitID: [id number] [place] [address] 50y, M Registration Date/Time: 04/18/2016 Weight: 88.4 kg Height/Length: 75 in. BMI: 24.4 ALLERGIES: No Known Drug Allergy The patient's Home Medications are listed below: NONE. The source(s) of the original Home Medication information: patient The following Medications were given to the patient in the Emergency Department: GI COCKTAIL WHITE [PO] PO 30 mL, administered: 04/18/2016 10:58:00 AM The following Medications were prescribed to the patient: Pepcid 20 mg: take 1 orally every 12 hours as needed for indigestion, upset stomach or heartburn. Dispense thirty (30). No refills. Substitution is permissible. -- Curtis Ruggiero Dr. Aspirin 81 mg (available over the counter): take 1 orally every 24 hours. Dispense thirty (30). No refills. -- Curtis Ruggiero Dr.
--- NOTE | 2016-04-20 16:28 | ED MED RECONCILIATION SUMMARY ---
Patient: EVERARDO MATA Medication Reconciliation Report [facility] VisitID: [id number] [place] [address] 50y, M Registration Date/Time: 04/18/2016 Weight: 88.4 kg Height/Length: 75 in. BMI: 24.4 ALLERGIES: No Known Drug Allergy The patient's Home Medications are listed below: NONE. The source(s) of the original Home Medication information: patient The following Medications were given to the patient in the Emergency Department: GI COCKTAIL WHITE [PO] PO 30 mL, administered: 04/18/2016 10:58:00 AM The following Medications were prescribed to the patient: Pepcid 20 mg: take 1 orally every 12 hours as needed for indigestion, upset stomach or heartburn. Dispense thirty (30). No refills. Substitution is permissible. -- Curtis Ruggiero Dr. Aspirin 81 mg (available over the counter): take 1 orally every 24 hours. Dispense thirty (30). No refills. -- Curtis Ruggiero Dr.
--- NOTE | 2016-04-20 16:28 | ED MAR SUMMARY ---
..... Medication Administration Record [address] [place] [address] Patient: EVERARDO MATA Visit ID: [id number] 50y, M Weight: 88.4 kg Height/Length: 75 in BMI: 24.4 ALLERGIES: No Known Drug Allergy Given 10:58 04/18/2016 Denia Prater R.N. Medication Administered: GI COCKTAIL WHITE [PO] (SIMETHICONE), Dose: 30 mL PO. Medication Ordered: GI Cocktail WHITE PO 30 mL (NOW).
--- NOTE | 2016-04-20 16:28 | ED DISCHARGE INSTRUCTIONS ---
Patient: EVERARDO MATA General Instructions Formerly [facility] VisitID: [id number] [address] [place] [address] 50y, M Registration Date/Time: 04/18/2016 Chest pain characterized as "tightness" .12 lead EKG performed. (acute left-sided). 04/18/2016 10:27 BP: 146/91. HR: 74. RR: 12. O2 saturation: 97%. Temp: 97.9 F. Pain level now: 03/29. Hypertensive. Oxygen saturation normal. Essential hypertension. INSTRUCTIONS Warnings: GENERAL WARNINGS: Return or contact your physician immediately if your condition worsens or changes unexpectedly, if not improving as expected, or if other problems arise. SPECIFICALLY, return if you develop chest, neck, jaw, shoulder, arm, or back pain, difficulty breathing, a fluttering sensation in your chest, lightheadedness, fainting, excessive fatigue, or sudden sweating. Your Current Medications: CONTINUE TAKING THE FOLLOWING MEDICATIONS: None*. Prescription Medications: Pepcid 20 mg: take 1 orally every 12 hours as needed for indigestion, upset stomach or heartburn. Dispense thirty (30). No refills. Substitution is permissible. OTC Medications: Aspirin 81 mg (available over the counter): take 1 orally every 24 hours. Dispense thirty (30). No refills. Follow-up: Return to the emergency department as needed. Screening today revealed the patient's blood pressure to be in the hypertensive range. The patient should follow up with a primary care provider for blood pressure management. Understanding of the discharge instructions verbalized by patient and family. Follow-up with: [facility], , , [address], , [place], [id number] Follow up in three days. Reason for referral: recheck today's concerns. Summary of care provided to patient and family via paper. Follow-up with: Fuad Villegas MD, Cardiology, , [facility], [address], [facility], [id number] Follow up in three. Reason for referral: recheck today's concerns. please call to verify appointment. ADDITIONAL INFORMATION Chest Pain, Uncertain Cause (Child) There are many causes of chest pain in children, and most are not serious. Sometimes chest pain is caused by stress. The child may be anxious about a separation or family issues, such as a family . Children may also experience chest pain from stomach acid or excessive coughing. Other children may have a temporary pinched nerve. In many cases, the cause of the chest pain is never known. Home Care: Medications: The doctor may prescribe medications for pain or related symptoms, such as a cough. Follow the doctors instructions for giving these medications to your child. Do not give your child any medications that the doctor has not approved. General Care: Allow your child to continue normal activities, as advised by the doctor and as tolerated. Learn to detect your dipika signs of pain. Try to find comfort measures that soothe your child. Position your child so that he or she is as comfortable as possible when experiencing chest pain. Adjust positioning as needed. Apply a covered heating pad (set on warm, not hot) or a warm cloth to the affected area for 20 minutes, 4 times a day. Ask the doctor about exercises to stretch the chest musclesthat may help ease pain. Talk to the doctor about the causes of your dipika pain. The doctor may suggest other methods to ease it. Follow Up as advised by the doctor or our staff. Get Prompt Medical Attention if any of the following occur: Fever greater than 100.4F (38C) Continuing symptoms, without relief from medication or other treatment Difficulty breathing, shortness of breath, fast breathing Child acting very ill or too weak to stand High Blood Pressure -- To Be Confirmed [No Tx] Your blood pressure was higher today than normal. Sometimes anxiety or pain can cause a temporary rise in blood pressure that later returns to normal. If your blood pressure is high on one measurement, this does not mean that you have hypertension (a chronic illness). However, you must have your blood pressure measured again within the next few days to find out if its still high. A normal blood pressure is 120/80 or less. The first (top) number is the "systolic" pressure. The second (bottom) number is the "diastolic" pressure. Hypertension exists when either the top number is 140 or higher, OR the bottom number is 90 or higher on repeated measurements. Blood pressure in the range of 120-140 (systolic) or 80-89 (diastolic) is considered "pre-hypertension". This means your are at risk for getting hypertension. You should have regular blood pressure checks to be sure your blood pressure is not rising. Home Care: Measure your blood pressure on 3 different days and write down the results. This can be done at your doctor's office or this facility. Some pharmacies and grocery stores offer automated blood pressure machines for your use. Follow Up: If your blood pressure is "high" (over 120/80) on 2 out of 3 days, you will need to follow up with your doctor for further evaluation and treatment. DO NOT PUT THIS OFF! Untreated high blood pressure increases the risk for heart attack, also known as acute myocardial infarction, or AMI, and stroke. It is a treatable condition. Get Prompt Medical Attention if any of the following occur: Chest pain or shortness of breath Severe headache Throbbing or rushing sound in the ears Nosebleed Sudden severe abdominal pain Extreme drowsiness, confusion or fainting Dizziness or vertigo (dizziness with spinning sensation) Weakness of an arm or leg or one side of the face Difficulty with speech or vision Famotidine Oral tablet What is this medicine? FAMOTIDINE (fa ANGEL ti isacc) is a type of antihistamine that blocks the release of stomach acid. It is used to treat stomach or intestinal ulcers. It can also relieve heartburn from acid reflux. How should I use this medicine? Take this medicine by mouth with a glass of water. Follow the directions on the prescription label. If you only take this medicine once a day, take it at bedtime. Take your doses at regular intervals. Do not take your medicine more often than directed. Talk to your wine cellar stock clerk regarding the use of this medicine in children. Special care may be needed. What side effects may I notice from receiving this medicine? Side effects that you should report to your doctor or health interior plant caretaker as soon as possible: agitation, nervousness confusion hallucinations skin rash, itching Side effects that usually do not require medical attention (report to your doctor or health interior plant caretaker if they continue or are bothersome): constipation diarrhea dizziness headache What may interact with this medicine? delavirdine itraconazole ketoconazole What if I miss a dose? If you miss a dose, take it as soon as you can. If it is almost time for your next dose, take only that dose. Do not take double or extra doses. Where should I keep my medicine? Keep out of the reach of children. Store at room temperature between 15 and 30 degrees C (59 and 86 degrees F). Do not freeze. Throw away any unused medicine after the expiration date. What should I tell my health care provider before I take this medicine? They need to know if you have any of these conditions: kidney or liver disease trouble swallowing an unusual or allergic reaction to famotidine, other medicines, foods, dyes, or preservatives or trying to get breast-feeding What should I watch for while using this medicine? Tell your doctor or health interior plant caretaker if your condition does not start to get better or if it gets worse. Finish the full course of tablets prescribed, even if you feel better. Do not take with aspirin, ibuprofen or other antiinflammatory medicines. These can make your condition worse. Do not smoke cigarettes or drink alcohol. These cause irritation in your stomach and can increase the time it will take for ulcers to heal. If you get black, tarry stools or vomit up what looks like coffee grounds, call your doctor or health interior plant caretaker at once. You may have a bleeding ulcer. Aspirin Oral tablet What is this medicine? ASPIRIN ( pir in) is a pain reliever. It is used to treat mild pain and fever. This medicine is also used as directed by a doctor to prevent and to treat heart attacks, to prevent strokes, and to treat arthritis or inflammation. How should I use this medicine? Take this medicine by mouth with a glass of water. Follow the directions on the package or prescription label. You can take this medicine with or without food. If it upsets your stomach, take it with food. Do not take your medicine more often than directed. Talk to your wine cellar stock clerk regarding the use of this medicine in children. While this drug may be prescribed for children as young as 12 years of age for selected conditions, precautions do apply. Children and teenagers should not use this medicine to treat chicken pox or flu symptoms unless directed by a doctor. Patients over 65 years old may have a stronger reaction and need a smaller dose. What side effects may I notice from receiving this medicine? Side effects that you should report to your doctor or health interior plant caretaker as soon as possible: allergic reactions like skin rash, itching or hives, swelling of the face, lips, or tongue breathing problems changes in hearing, ringing in the ears confusion general ill feeling or flu-like symptoms pain on swallowing redness, blistering, peeling or loosening of the skin, including inside the mouth or nose signs and symptoms of bleeding such as bloody or black, tarry stools; red or dark-brown urine; spitting up blood or brown material that looks like coffee grounds; red spots on the skin; unusual bruising or bleeding from the eye, gums, or nose trouble passing urine or change in the amount of urine unusually weak or tired yellowing of the eyes or skin Side effects that usually do not require medical attention (report to your doctor or health interior plant caretaker if they continue or are bothersome): diarrhea or constipation nausea, vomiting stomach gas, heartburn What may interact with this medicine? Do not take this medicine with any of the following medications: cidofovir ketorolac probenecid This medicine may also interact with the following medications: alcohol alendronate bismuth subsalicylate flavocoxid herbal supplements like feverfew, garlic, domingo, ginkgo biloba, horse chestnut medicines for diabetes or glaucoma like acetazolamide, methazolamide medicines for gout medicines that treat or prevent blood clots like enoxaparin, heparin, ticlopidine, warfarin other aspirin and aspirin-like medicines NSAIDs, medicines for pain and inflammation, like ibuprofen or naproxen pemetrexed sulfinpyrazone varicella live vaccine What if I miss a dose? If you are taking this medicine on a regular schedule and miss a dose, take it as soon as you can. If it is almost time for your next dose, take only that dose. Do not take double or extra doses. Where should I keep my medicine? Keep out of the reach of children. Store at room temperature between 15 and 30 degrees C (59 and 86 degrees F). Protect from heat and moisture. Do not use this medicine if it has a strong vinegar smell. Throw away any unused medicine after the expiration date. What should I tell my health care provider before I take this medicine? They need to know if you have any of these conditions: anemia asthma bleeding problems child with chickenpox, the flu, or other viral infection diabetes gout if you frequently drink alcohol containing drinks kidney disease liver disease low level of vitamin K lupus smoke tobacco stomach ulcers or other problems an unusual or allergic reaction to aspirin, tartrazine dye, other medicines, dyes, or preservatives or trying to get breast-feeding What should I watch for while using this medicine? If you are treating yourself for pain, tell your doctor or health interior plant caretaker if the pain lasts more than 10 days, if it gets worse, or if there is a new or different kind of pain. Tell your doctor if you see redness or swelling. Also, check with your doctor if you have a fever that lasts for more than 3 days. Only take this medicine to prevent heart attacks or blood clotting if prescribed by your doctor or health interior plant caretaker. Do not take aspirin or aspirin-like medicines with this medicine. Too much aspirin can be dangerous. Always read the labels carefully. This medicine can irritate your stomach or cause bleeding problems. Do not smoke cigarettes or drink alcohol while taking this medicine. Do not lie down for 30 minutes after taking this medicine to prevent irritation to your throat. If you are scheduled for any medical or dental procedure, tell your healthcare provider that you are taking this medicine. You may need to stop taking this medicine before the procedure. You have been given the following additional information: Chest Pain, Uncertain Cause (Child) Hypertension, To Be Confirmed Famotidine Oral tablet Aspirin Oral tablet (Electronically signed by Curtis Ruggiero Dr. 04/20/2016 16:28)
== END 2016-04-18 14:55 | disposition home or self-care (01) ==
LOC: ED SRH 10:26
DX: I10 Essential (primary) hypertension (principal)
CPT/HCPCS: 90100; 90616; 91556; 95059